=== PATIENT | female | born 2000 | race Caucasian/White ===

== ENCOUNTER 2022-10-12 09:37 | Emergency (ER) | payer BC ==
[~2022-10-12] VITALS: Ht 162.6 cm; Wt 96.2 kg
[~2022-10-12 09:37] MED LIST: INTESTINEX680 MG PO; ZANTAC150 M3 PO
[2022-10-12] MEDS ORDERED: PEPCID AC20 MG PO (13:41)
== END 2022-10-12 13:45 | disposition home or self-care (01) ==
LOC: ER 09:37
DX: K29.70 Gastritis, unspecified, without bleeding (principal); Z91.012 Allergy to eggs